=== PATIENT | male | born 1990 ===

== ENCOUNTER 2020-05-15 13:07 | Outpatient (CLI) | payer SELFPAY ==
[2020-05-19 19:28] LABS: SARS-CoV-2 RNA Undetected (Undetected); SARS-CoV-2 Specimen Source Nasopharynx
--- NOTE | 2020-05-25 11:16 | NUR.NOTE ---
Nursing Note:- Patient called for Covid -[address] Miguel result given to patient
== END 2020-05-15 13:27 ==
PROVIDERS: Visit Provider Family Medicine
DX: Z20.828 Contact with and (suspected) exposure to other viral communicable diseases (principal)
CPT/HCPCS: U0003